=== PATIENT | female | born 1995 | race Two or more races ===

== ENCOUNTER 2019-08-11 14:42 | Inpatient (IN) | payer MEDICAID ==
[~2019-08-11] VITALS: Ht 162.6 cm; Wt 93.6 kg
[2019-08-11 15:26] VITALS: BP 132/72
[2019-08-11 15:35] LABS: BASOPHILS # (AUTO) 0.06 x10^3/uL (0-0.1); BASOPHILS % (AUTO) 1 % (0-1); EOSINOPHILS # (AUTO) 0.13 x10^3/uL (0-0.4); EOSINOPHILS % (AUTO) 1 % (1-7); LYMPHOCYTES # (AUTO) 1.18 x10^3/uL (1-3.4); LYMPHOCYTES % (AUTO) 12 % (22-44); MD NO; MEAN CORPUSCULAR HEMOGLOBIN 31.8 pg (27.0-34.8); MEAN CORPUSCULAR VOLUME 93.4 fL (80-100); MEAN PLATELET VOLUME 9.4 fL (7.4-10.4); MONOCYTES # (AUTO) 0.46 x10^3/uL (0.2-0.8); MONOCYTES % (AUTO) 5 % (2-9); NEUTROPHILS # (AUTO) 7.75 x10^3/uL (1.8-6.8); NEUTROPHILS % (AUTO) 81 % (42-75); PLATELET COUNT 182 x10^3/uL (130-400); RED BLOOD COUNT 4.16 x10^6/uL (3.82-5.3); RED CELL DISTRIBUTION WIDTH 13.4 % (9.6-15.2)
[2019-08-11 15:38] LABS: ALBUMIN 2.8 g/dL (3.4-5.0); ANION GAP 6 mmol/L (5-15); CHLORIDE 108 mmol/L (98-107)
[2019-08-11 15:40] LABS: MICROSCOPIC INDICATED
[2019-08-11 15:42] LABS: ALANINE AMINOTRANSFERASE 15 U/L (12-78); ALKALINE PHOSPHATASE 161 U/L (45-117); BILIRUBIN,TOTAL 0.3 mg/dL (0.2-1.0); CREATININE 0.52 mg/dL (0.55-1.02); TOTAL PROTEIN 7.3 g/dL (6.4-8.2)
[2019-08-11] MEDS ORDERED: PREN1TAB60 PO (15:43)
[2019-08-11 15:49] LABS: BILIRUBIN, DIRECT < 0.1 mg/dL (0.1-0.2)
[2019-08-11] MEDS ORDERED: OXYTOCIN 30U/ 0.9% NaCL 500ML 500 ML ONE (17:46)
[2019-08-11] MEDS ORDERED: NEWBORN KIT ONE (17:46)
[2019-08-11] MEDS: D5%-LACTATED RINGERS 1,000 ML IV SCH (18:01)
[2019-08-11] MEDS ORDERED: OXYTOCIN 30U/ 0.9% NaCL 500ML 500 ML IV PRN (18:01)
[2019-08-11] MEDS ORDERED: OXYTOCIN 30U/ 0.9% NaCL 500ML 500 ML IV ONE (18:01)
[2019-08-11] MEDS ORDERED: FENTANYL PF 100 MCG/2ML IV PRN (18:30)
[2019-08-11] MEDS ORDERED: TERBUTALINE 1 MG/ML, 1ML IVPush PRN (18:30)
[2019-08-11] MEDS ORDERED: ONDANSETRON 2MG/ML, 2ML IVPush PRN (18:30)
[2019-08-11] MEDS ORDERED: TERBUTALINE 1 MG/ML, 1ML SQ PRN (18:30)
[2019-08-11 18:46] LABS: CREATININE,URINE RANDOM 38.5 mg/dL
[2019-08-11] MEDS: LACTATED RINGERS 1,000 ML IV SCH (18:50)
[2019-08-11] MEDS ORDERED: DIPH,PERTUSS(ACELL),TET VAC/PF NC IM-VACC ONE (19:35)
[2019-08-11 22:35] VITALS: BP 111/55
[2019-08-12] MEDS ORDERED: ONDANSETRON 2MG/ML, 2ML ONE (01:37)
[2019-08-12] MEDS: D5%-LACTATED RINGERS 1,000 ML IV SCH (01:39)
[2019-08-12] MEDS ORDERED: FENTANYL PF 100 MCG/2ML ONE ×3 (01:46→04:04)
[2019-08-12] MEDS: FENTANYL PF 100 MCG/2ML IVPush PRN ×3 (01:49→04:07)
[2019-08-12] MEDS: LACTATED RINGERS 1,000 ML IV SCH (02:50)
[2019-08-12] MEDS ORDERED: OXYTOCIN 30U/ 0.9% NaCL 500ML 500 ML ONE (03:22)
[2019-08-12] MEDS ORDERED: IBUPROFEN 600 MG TABLET ONE (06:49)
[2019-08-12] MEDS ORDERED: OXYcodone/APAP 5/325MG TABLET ONE ×2 (06:49→11:28)
[2019-08-12] MEDS: OXYcodone/APAP 5/325MG TABLET PO PRN ×3 (06:53→18:56)
[2019-08-12] MEDS: IBUPROFEN 600 MG TABLET PO PRN ×3 (06:53→20:16)
[2019-08-12] MEDS ORDERED: ACETAMINOPHEN 325 MG TABLET PO PRN (07:00)
[2019-08-12] MEDS ORDERED: MISOPROSTOL 200 MCG TABLET PR PRN (07:00)
[2019-08-12] MEDS ORDERED: SIMETHICONE 80 MG CHEW TAB PO PRN (07:00)
[2019-08-12] MEDS ORDERED: ONDANSETRON 2MG/ML, 2ML IV PRN (07:00)
[2019-08-12] MEDS ORDERED: OXYcodone IR 5MG TABLET PO PRN (07:00)
[2019-08-12] MEDS: PRENATAL VIT/IRON/FA 1 EACH TABLET PO SCH (09:00)
[2019-08-12] MEDS: OXYTOCIN 30U/ 0.9% NaCL 500ML 500 ML IV SCH ×2 (10:00→16:51)
[2019-08-12] MEDS ORDERED: DOCUSATE 100 MG CAPSULE ONE (11:27)
[2019-08-12] MEDS: DOCUSATE 100 MG CAPSULE PO PRN ×2 (11:38→20:16)
[2019-08-12 13:30] VITALS: BP 99/66
[2019-08-12 14:01] LABS: BASOPHILS # (AUTO) 0.01 x10^3/uL (0-0.1); BASOPHILS % (AUTO) 0 % (0-1); EOSINOPHILS % (AUTO) 0 % (1-7); LYMPHOCYTES # (AUTO) 0.92 x10^3/uL (1-3.4); LYMPHOCYTES % (AUTO) 5 % (22-44); MD NO; MEAN CORPUSCULAR HEMOGLOBIN 31.7 pg (27.0-34.8); MEAN CORPUSCULAR HGB CONC 33.9 g/dL (32.4-35.8); MEAN CORPUSCULAR VOLUME 93.5 fL (80-100); MONOCYTES # (AUTO) 0.45 x10^3/uL (0.2-0.8); MONOCYTES % (AUTO) 3 % (2-9); NEUTROPHILS # (AUTO) 15.84 x10^3/uL (1.8-6.8); NEUTROPHILS % (AUTO) 92 % (42-75); PLATELET COUNT 181 x10^3/uL (130-400); RED BLOOD COUNT 2.75 x10^6/uL (3.82-5.3); RED CELL DISTRIBUTION WIDTH 13.7 % (9.6-15.2)
[2019-08-12 18:25] VITALS: BP 97/63
[2019-08-12 20:00] VITALS: BP 108/62
[2019-08-13 00:30] VITALS: BP 103/63
[2019-08-13] MEDS: OXYTOCIN 30U/ 0.9% NaCL 500ML 500 ML IV SCH ×3 (04:31→22:51)
[2019-08-13] MEDS: IBUPROFEN 600 MG TABLET PO PRN ×3 (04:48→19:03)
[2019-08-13] MEDS: OXYcodone/APAP 5/325MG TABLET PO PRN ×3 (04:49→19:03)
[2019-08-13 04:51] VITALS: BP 93/59
[2019-08-13 08:20] VITALS: BP 101/68
[2019-08-13] MEDS: DOCUSATE 100 MG CAPSULE PO PRN ×2 (10:42→19:03)
[2019-08-13] MEDS: PRENATAL VIT/IRON/FA 1 EACH TABLET PO SCH (10:42)
[2019-08-13 20:00] VITALS: BP 93/58
[2019-08-14] MEDS: IBUPROFEN 600 MG TABLET PO PRN ×2 (01:36→09:37)
[2019-08-14] MEDS: OXYcodone/APAP 5/325MG TABLET PO PRN ×4 (01:36→12:06)
[2019-08-14] MEDS: OXYTOCIN 30U/ 0.9% NaCL 500ML 500 ML IV SCH (08:51)
[2019-08-14] MEDS ORDERED: IBUP-1222 PO (08:56)
[2019-08-14] MEDS ORDERED: FERR-51 PO (08:58)
[2019-08-14 09:00] VITALS: BP 100/65
[2019-08-14] MEDS: PRENATAL VIT/IRON/FA 1 EACH TABLET PO SCH (09:36)
[2019-08-14] MEDS: DOCUSATE 100 MG CAPSULE PO PRN (09:36)
== END 2019-08-14 12:55 | disposition home or self-care (01) | DRG 806 ==
LOC: LDOP 14:42 → LDIP 16:51 → 2NW 08-12 09:49
PROVIDERS: ADMIT Obstetrics & Gynecology; ATTEND Obstetrics & Gynecology
PROC: 10E0XZZ Delivery of Products of Conception, External Approach (ICD-10-PCS; principal; 2019-08-12)
PROC: 0KQM0ZZ Repair Perineum Muscle, Open Approach (ICD-10-PCS; 2019-08-12)
PROC: 0W8NXZZ Division of Female Perineum, External Approach (ICD-10-PCS; 2019-08-12)
PROC: 3E0R3BZ Introduction of Anesthetic Agent into Spinal Canal, Percutaneous Approach (ICD-10-PCS; 2019-08-12)
PROC: 00HU33Z Insertion of Infusion Device into Spinal Canal, Percutaneous Approach (ICD-10-PCS; 2019-08-12)
PROC: 3E0P7VZ Introduction of Hormone into Female Reproductive, Via Natural or Artificial Opening (ICD-10-PCS; 2019-08-12)
DX: O70.1 Second degree perineal laceration during delivery (principal); O72.1 Other immediate postpartum hemorrhage; Z37.0 Single live birth; O90.81 Anemia of the puerperium; D64.9 Anemia, unspecified; Z3A.39 39 weeks gestation of pregnancy
CPT/HCPCS: 36415; J7121; 80053; 81001; 82248; 82570; 84156; 84550; 85025; 86592; 86850; 86900; 87086; G0378; J2405; J3010; J2590; J7120